=== PATIENT | female | born 1945 | race Caucasian/White ===

== ENCOUNTER 2018-12-29 06:30 | Day surgery (SDC) | payer MEDICARE, OTHER ==
[~2018-12-29] VITALS: Ht 160 cm; Wt 84.2 kg
[~2018-12-29 06:30] MED LIST: BRIM10DR2 OP; DORZ10DR22 OP; FLUT16SP24 NS; LANS30CA47 PO; LORA-396 PO; LORA10TA PO; METF-849 PO; METH50TA5 PO; RSV10T PO
[2018-12-29] MEDS ORDERED: PROPOFOL 40 ML ONE (07:06)
[2018-12-29] MEDS ORDERED: LIDOCAINE 100 MG SYRINGE ONE (07:06)
--- NOTE | 2018-12-29 07:13 | PREAC ---
Date/Time of Note Date/Time of Note DATE: 12/29/18 TIME: : Anesthesia Eval and Record Evaluation Time Pre-Procedure Interview DATE: 12/29/18 TIME: : Age 73 Sex female NPO: 8 hrs Preoperative diagnosis dyspepsia / abdominal pain Planned procedure egd/ colonoscopy Past Medical History Past Medical History: Includes Cardio: HTN, Dyslipidemia Endo: Diabetes GI: Obesity Surgery & Anesthesia Issues No known issue Meds Anticoagulation: No Beta Elieser within 24 hr: Yes Reported Medications Lorazepam* (Ativan*) 0.5 Mg Tablet, 0.5 MG PO PRN 09/19/12 Metformin* (Glucophage*) 500 Mg Tab, 500 MG PO BID 09/19/12 Discontinued Reported Medications Brimonidine/Timolol* (Combigan*) 10 Ml Drops, 10 ML OP BID 09/19/12 Dorzolamide-Timolol* (Cosopt*) 5 Ml Drops, 5 ML OP DAILY 09/19/12 Loratadine (Loratadine) 10 Mg Tablet, 10 MG PO DAILY 09/19/12 Fluticasone Propionate* (Flonase* Nasal) 16 Gm [place].susp, 16 GM NS DAILY 09/19/12 Methazolamide* (Methazolamide*) 50 Mg Tablet, 50 MG PO BID 09/19/12 Rosuvastatin Calcium* (Crestor*) 10 Mg Tablet, 10 MG PO DAILY 09/19/12 Lansoprazole* (Prevacid*) 30 Mg Capsule.dr, 30 MG PO DAILY 09/19/12 Meds reviewed: Yes Allergies Coded Allergies: cefdinir (Verified Allergy, Intermediate, nausea and vomitting, 12/29/18) per H&P, pt does not recall med name erythromycin base (Verified Allergy, Intermediate, nausea and vomiting, 12/29/18) per H&P, pt does not recall med name Allergies Reviewed: Yes Labs/Studies Labs Reviewed: Other (NA) test: N/A Pre-procedure Exam Airway: Adequate mouth opening Mallampati: Mallampati II Teeth: Normal Lung: Normal Heart: Normal ASA Physical Status ASA physical status: 2 Emergency: None Planned Anesthetic General/MAC: MAC Pre-operative Attestations Prior to commencing anesthesia and surgery, the patient was re-evaluated, there was verification of: *The patient's identity *The results of appropriate recent lab work and preoperative vital signs *The above evaluation not changing prior to induction *Anesthetic plan, risk benefits, alternative and complications discussed with patient/family; questions answered; patient/family understands, accepts and wi shes to proceed. CORINNE AU Dec 29, 2018 07:13
[2018-12-29 07:31] VITALS: Ht 160 cm; Wt 84.2 kg
[2018-12-29 07:39] VITALS: BP 158/72; PULSE 54; RESP 16
[2018-12-29] MEDS ORDERED: montelukast (07:48)
[2018-12-29] MEDS ORDERED: pravastatin (07:48)
[2018-12-29] MEDS ORDERED: labetalol (07:48)
[2018-12-29] MEDS ORDERED: omeprazole (07:48)
--- NOTE | 2018-12-29 08:13 | PAC ---
Date/Time of Note Date/Time of Note DATE: 12/29/18 TIME: 08:12 Post-Anesthesia Notes Post-Anesthesia Note Last documented vital signs BP 113/56 HR 61 Spo2 100% Temp 98.6F RR 16 Activity: WNL Respiratory function: WNL Cardiovascular function: WNL Mental status: Baseline Pain reasonably controlled: Yes Hydration appropriate: Yes Nausea/Vomiting absent: Yes CORINNE AU Dec 29, 2018 08:13
[2018-12-29 08:42] VITALS: BP 182/75; PULSE 58; RESP 18
== END 2018-12-29 11:44 | disposition home or self-care (01) ==
LOC: GIL 06:30
PROVIDERS: ATTEND Internal Medicine Gastroenterology
DX: R19.4 Change in bowel habit (principal); K57.30 Diverticulosis of large intestine without perforation or abscess without bleeding; K44.9 Diaphragmatic hernia without obstruction or gangrene; K20.8 Other esophagitis; K29.50 Unspecified chronic gastritis without bleeding; I10 Essential (primary) hypertension; E11.9 Type 2 diabetes mellitus without complications; E78.5 Hyperlipidemia, unspecified; Z79.84 Long term (current) use of oral hypoglycemic drugs
CPT/HCPCS: 43239; 45378; 82962; 88305; 88312; 88313; J2001